=== PATIENT | female | born 1980 | race Caucasian/White ===

== ENCOUNTER 2021-08-23 17:14 | Inpatient (IN) | payer OTHER ==
[~2021-08-23] VITALS: Ht 167.6 cm; Wt 93.5 kg
[2021-08-23 18:57] LABS: BASOPHILS % (AUTO) 0.7 % (0.0-2.0); EOSINOPHILS % (AUTO) 0 % (1.0-6.0); HEMATOCRIT 37.9 % (36-46); HEMOGLOBIN 13.2 g/dL (12.0-16.0); LYMPHOCYTES # (AUTO) 2.4 K/uL (1.0-4.8); LYMPHOCYTES % (AUTO) 31.9 % (22.0-44.0); MEAN CORPUSCULAR HEMOGLOBIN 33.9 pg (26.0-34.0); MEAN CORPUSCULAR HGB CONC 34.8 G/dL (31.0-37.0); MEAN CORPUSCULAR VOLUME 97 fL (80-100); MONOCYTES # (AUTO) 0.5 K/uL (0.1-1.0); NEUTROPHILS # (AUTO) 4.5 K/uL (1.8-7.7); NEUTROPHILS % (AUTO) 60.4 % (40.0-70.0); PLATELET COUNT (AUTO) 184 K/uL (150-450); RED CELL DISTRIBUTION WIDTH 14.7 % (11.5-14.5)
[2021-08-23 19:01] LABS: COVID AG,FIA SOURCE NASOPHARYNGEAL
[2021-08-23 19:05] LABS: ANION GAP 11 mmol/L (8-16); CALCIUM, TOTAL 8.4 mg/dL (8.8-10.5); CARBON DIOXIDE 26 mmol/L (22-29); CHLORIDE 108 mmol/L (98-107); CREATININE 0.82 mg/dL (0.60-1.30); GLOMERULAR FILTR. RATE CALC > 60 mL/min (>60); GLUCOSE,RANDOM 111 mg/dL (70-110); POTASSIUM 3.3 mmol/L (3.5-5.1); SODIUM SERUM 145 mmol/L (136-145); UREA NITROGEN, BLOOD 20 mg/dL (7-18)
[2021-08-23 19:20] LABS: ACETAMINOPHEN 4 mcg/mL (10-30); ALANINE AMINOTRANSFERASE 42 U/L (12-78); ALBUMIN 3.7 g/dL (3.4-5.0); ALKALINE PHOSPHATASE 98 U/L (46-116); ASPARTATE AMINOTRANSFERASE 33 U/L (15-37); BILIRUBIN,TOTAL 0.3 mg/dL (0.1-1.0); FREE T4 (FREE THYROXINE) 0.85 ng/dL (0.76-1.46); HCG,QUANTITATIVE < 1 mIU/mL (0-6); THYROID STIMULATING HORMONE 2.28 uIU/mL (0.36-3.74); TOTAL PROTEIN, SERUM 7.6 g/dL (6.4-8.2)
[2021-08-23 19:22] LABS: VALPROIC ACID < 3 mcg/mL (50-100)
[2021-08-23 19:28] LABS: SALICYLATE 6.3 mg/dL (2.8-20.0)
[2021-08-23] MEDS ORDERED: POTASSIUM CHLORIDE 20 MEQ ER TABLET PO ONE (20:45)
[2021-08-23] MEDS ORDERED: ZOLPIDEM TARTRATE 10 MG TABLET PO PRN (20:45)
[2021-08-23] MEDS ORDERED: HALOPERIDOL 5 MG TABLET PO PRN (20:45)
[2021-08-23] MEDS: LORazepam 2 MG TABLET PO PRN (23:00)
[2021-08-24 00:35] LABS: CHOLESTEROL 235 mg/dL (131-200); HDL CHOLESTEROL 59 mg/dL (40-60); LDL CHOL (CALC.) 142 mg/dL (0-130); TRIGLYCERIDES 171 mg/dL (15-150)
[2021-08-24] MEDS: LORazepam 2 MG TABLET PO PRN (06:27)
[2021-08-24] MEDS ORDERED: PETROLATUM,WHITE 28 GM JELLY TP PRN (08:00)
[2021-08-24] MEDS ORDERED: NICOTINE 14 MG/24 HOUR PATCH TD PRN (08:00)
[2021-08-24] MEDS ORDERED: LOPERAMIDE HCL 2 MG CAPSULE PO PRN (08:00)
[2021-08-24] MEDS ORDERED: ONDANSETRON HCL 4 MG TABLET PO PRN (08:00)
[2021-08-24] MEDS ORDERED: ACETAMINOPHEN 325 MG TABLET PO PRN (08:00)
[2021-08-24] MEDS ORDERED: GuaiFENesin/D-METHORPHAN [SUGAR-FREE] 200-20MG/10 ML SYRUP UDCUP PO PRN (08:00)
[2021-08-24] MEDS ORDERED: MAGNESIUM HYDROXIDE SUSPENSION 30 ML UDCUP PO PRN (08:00)
[2021-08-24] MEDS ORDERED: DOCUSATE SODIUM 100 MG CAPSULE PO PRN (08:00)
[2021-08-24] MEDS ORDERED: MAG HYDROX/AL HYDROX/SIMETH ES 30 ML SUSPENSION UDCUP PO PRN (08:00)
[2021-08-24] MEDS ORDERED: ALBUTEROL SULFATE HFA 90 MCG/PUFF 8 GM INHALER IH PRN (08:00)
[2021-08-24] MEDS ORDERED: CloNIDine HCL 0.1 MG TABLET PO PRN (08:00)
[2021-08-24] MEDS ORDERED: IBUPROFEN 400 MG TABLET PO PRN (08:00)
[2021-08-24] MEDS ORDERED: LORazepam 1 MG TABLET PO PRN (08:00)
[2021-08-24 08:59] VITALS: BP 150/111
[2021-08-24] MEDS ORDERED: HydrOXYzine PAMOATE 25 MG CAPSULE PO PRN (11:00)
[2021-08-24] MEDS ORDERED: LEVOTHYROXINE SODIUM 75 MCG TABLET PO SCH (11:30)
[2021-08-24] MEDS: DULoxetine HCL 30 MG CAPSULE PO SCH (13:34)
[2021-08-24] MEDS: OMEPRAZOLE 20 MG CAPSULE PO SCH (13:34)
[2021-08-24 18:43] VITALS: BP 155/111
[2021-08-25] MEDS ORDERED: LEVOTHYROXINE SODIUM 75 MCG TABLET PO SCH (07:00)
[2021-08-25 08:48] VITALS: BP 152/98
[2021-08-25] MEDS: DULoxetine HCL 30 MG CAPSULE PO SCH (11:27)
[2021-08-25] MEDS: OMEPRAZOLE 20 MG CAPSULE PO SCH (11:27)
[2021-08-25] MEDS ORDERED: DULO30CA89 PO (14:22)
[2021-08-25] MEDS ORDERED: LEVO75 PO (14:26)
[2021-08-25] MEDS ORDERED: OMEP20 PO (14:27)
[2021-08-25 16:00] VITALS: BP 136/93
== END 2021-08-25 16:15 | disposition home or self-care (01) | DRG 885 ==
LOC: EMS 17:20 → 3EC 08-24 08:10
PROVIDERS: ADMIT Psychiatry & Neurology Psychiatry; ATTEND Psychiatry & Neurology Psychiatry
DX: F33.2 Major depressive disorder, recurrent severe without psychotic features (principal); R45.851 Suicidal ideations; F10.99 Alcohol use, unspecified with unspecified alcohol-induced disorder; E03.9 Hypothyroidism, unspecified; E78.5 Hyperlipidemia, unspecified; E87.6 Hypokalemia; Z20.822 Contact with and (suspected) exposure to COVID-19; Y90.8 Blood alcohol level of 240 mg/100 ml or more
CPT/HCPCS: 80053; 80061; 80164; 83735; 84132; 84439; 84443; 84702; 85025; 93005; 99285; G0480; G0481